=== PATIENT | female | born 1955 | race Two or more races ===

== ENCOUNTER 2022-05-10 22:46 | Inpatient (IN) | payer MEDICAID, OTHER ==
[~2022-05-10] VITALS: Ht 157.5 cm; Wt 54.4 kg
--- NOTE | 2022-05-10 23:15 | NUR ---
[id number] FROM HOME C/O WEAKNESS , NEAR SYNCOPAL EPISODE, COOL, CLAMMY, AND LETHARGIC WITH BG 42 ON SCENE. 1 AMP D10 GIVEN BUILDING SERVICEMAN. PT REMAINS LETHARGIC AND WEAK ON ASSESSMENT BG 184. HC DIABETES/ PLACED ON MONITOR AND PULSE OX AND V/S WNL. MD WAS AT BEDSIDE FOR ASSESSMENT.
--- NOTE | 2022-05-10 23:16 | NUR ---
20G IV LINE RAC. BLOOD DRAWN AND SENT TO LAB.
--- NOTE | 2022-05-10 23:18 | NUR ---
RUBEN COLLECTED AND SENT TO LAB
[2022-05-11] MEDS ORDERED: ASPIRIN 325 MG TABLET PO ONE
[2022-05-11 00:08] LABS: RED BLOOD CELL COUNT(AUTO) 4.24 MIL/uL (4.0-5.2)
[2022-05-11 00:09] LABS: BASOPHILS % (AUTO) 0.4 % (0.0-2.0); EOSINOPHILS % (AUTO) 9.8 % (0.0-6.0); HEMATOCRIT 37 % (33-45); LYMPHOCYTES # (AUTO) 1.1 K/uL (0.8-4.8); LYMPHOCYTES % (AUTO) 22.6 % (20.0-44.0); MEAN CORPUSCULAR HGB CONC 32 g/dl (31.0-36.0); MEAN CORPUSCULAR VOLUME 88 fL (82-100); MONOCYTES # (AUTO) 0.5 K/uL (0.1-1.30); MONOCYTES % (AUTO) 9.8 % (2.0-12.0); NEUTROPHILS # (AUTO) 2.9 K/uL (1.8-8.9); NEUTROPHILS % (AUTO) 57.4 % (43.0-81.0); PLATELET COUNT (AUTO) 94 K/uL (150-450)
[2022-05-11] MEDS ORDERED: ASPIRIN 325 MG TABLET ONE (00:10)
[2022-05-11 00:18] LABS: CALCIUM, SERUM 9.4 mg/dL (8.5-10.1); CARBON DIOXIDE 29 mmol/L (21-32); CHLORIDE 97 mmol/L (98-107); CREATININE 4.6 mg/dL (0.6-1.3); GLUCOSE 187 mg/dL (74-106); SODIUM SERUM 134 mmol/L (136-145); UREA NITROGEN, BLOOD 69 mg/dL (7-18)
[2022-05-11 00:34] LABS: ALANINE AMINOTRANSFERASE 17 U/L (12-78); ALBUMIN 3.9 g/dL (3.4-5.0); ALKALINE PHOSPHATASE 112 U/L (46-116); ASPARTATE AMINOTRANSFERASE 19 U/L (15-37); BILIRUBIN,DIRECT 0.1 mg/dL (0.0-0.2); BILIRUBIN,TOTAL 0.3 mg/dL (0.2-1.0); TOTAL PROTEIN, SERUM 7.9 g/dL (6.4-8.2)
[2022-05-11] MEDS ORDERED: ONDANSETRON HCL/PF 4 MG/2 ML VIAL IVP PRN (02:00)
[2022-05-11] MEDS ORDERED: NITROGLYCERIN 0.4 MG/TAB BOTTLE SL ONE (02:00)
[2022-05-11] MEDS ORDERED: ACETAMINOPHEN 325 MG TABLET PO PRN (02:00)
[2022-05-11] MEDS ORDERED: MORPHINE SULFATE INJ 2 MG/ML DISP.SYRIN IV PRN (02:00)
[2022-05-11] MEDS ORDERED: MAGNESIUM HYDROXIDE 30 ML UDC PO PRN (02:00)
[2022-05-11] MEDS ORDERED: DEXTROSE 50%-WATER 50 ML DISP.SYRIN IV PRN (02:00)
[2022-05-11] MEDS ORDERED: IV NS 0.9% 1,000 ML IV PRN (02:00)
[2022-05-11] MEDS ORDERED: ZOLPIDEM TARTRATE 5 MG TABLET PO PRN (02:00)
[2022-05-11] MEDS ORDERED: MAG HYDROX/AL HYDROX/SIMETH 30 ML UDC PO PRN (02:00)
[2022-05-11] MEDS ORDERED: Z GUARD REMEDY 4 OZ OINT TP PRN (02:00)
[2022-05-11 02:03] LABS: BASOPHILS % (MANUAL) 0 % (0.0-2.0); EOSINOPHILS % (MANUAL) 4 % (0-4); LYMPHOCYTES % (MANUAL) 24 % (16-48); MONOCYTES % (MANUAL) 10 % (0-11.0); NEUTROPHILS % (MANUAL) 62 (42-76)
[2022-05-11 02:08] LABS: CHOLESTEROL 176 mg/dL (<200); HDL CHOLESTEROL 86 mg/dL (40-60); LDL 60 mg/dL (0-99); TRIGLYCERIDES 142 mg/dL (30-150)
[2022-05-11 02:19] LABS: T4 (THYROXINE) 7.7 ug/dL (4.7-13.3); THYROID STIMULATING HORMONE 2.314 uIU/mL (0.358-3.74)
[2022-05-11] MEDS ORDERED: LABETALOL HCL IV 100MG VIAL ONE (03:23)
[2022-05-11] MEDS ORDERED: LABETALOL HCL IV 100MG VIAL IV ONE (03:30)
[2022-05-11] MEDS ORDERED: METOPROLOL TARTRATE INJ 5 MG/5 ML AMPUL IVP ONE (03:30)
--- NOTE | 2022-05-11 03:48 | NUR ---
CRITICAL: KASIA Santoro MD AWARE
[2022-05-11] MEDS ORDERED: NITROGLYCERIN 0.4 MG/TAB BOTTLE ONE (03:53)
[2022-05-11] MEDS: BLOOD SUGAR DIAGNOSTIC 1 EACH STRIP IN SCH ×5 (05:05→22:19)
[2022-05-11] MEDS ORDERED: INSULIN REGULAR, HUMAN 100 UNIT/ML 10 ML VIAL ONE (05:06)
[2022-05-11] MEDS: INSULIN REGULAR, HUMAN 100 UNIT/ML 3 ML VIAL SQ PRN ×4 (05:12→17:18)
--- NOTE | 2022-05-11 07:53 | NUR ---
BED 307-2
--- NOTE | 2022-05-11 08:12 | NUR ---
REPORT GIVEN TO NURSE MOSES FOR ADEOLA
[2022-05-11] MEDS ORDERED: HYDR-4076 PO (08:38)
[2022-05-11] MEDS ORDERED: SACU1TAB PO (08:38)
[2022-05-11] MEDS ORDERED: ATOR10TA PO (08:38)
[2022-05-11] MEDS ORDERED: ASPI-1169 PO (08:38)
[2022-05-11] MEDS ORDERED: CLOP75TA15 PO (08:38)
[2022-05-11] MEDS ORDERED: BUME2TAB7 PO (08:38)
[2022-05-11] MEDS ORDERED: SEVE800T8 PO (08:38)
[2022-05-11] MEDS ORDERED: FOLI0.8T23 PO (08:38)
[2022-05-11] MEDS ORDERED: DOCU-141 PO (08:38)
[2022-05-11] MEDS ORDERED: CHOL100043 PO (08:38)
[2022-05-11] MEDS ORDERED: CARV3.122 PO (08:38)
[2022-05-11] MEDS ORDERED: CALC667T2 PO (08:43)
--- NOTE | 2022-05-11 08:49 | NUR ---
TRANSFERRED TO BED 307 IN STABLE CONDITION
[2022-05-11] MEDS ORDERED: HEPARIN SODIUM, PORCINE 5000 UNITS/1 ML VIAL SQ SCH (09:00)
[2022-05-11] MEDS ORDERED: PANTOPRAZOLE 40 MG VIAL IV SCH (09:00)
--- NOTE | 2022-05-11 09:00 | NUR ---
ADMISSION RN NOTES ADMITTED A 67 Y/O FEMALE TO THE UNIT AT 0850 VIA GURNEY ACCOMPANIED BY Lis STAFF WITH DX OF NSTEMI. PATIENT IS ALERT AND ORIENTED X4, ABLE TO MAKE NEEDS KNOWN. PT IS MAORI SPEAKING. RATTLE LEAK AND SQUEAK REPAIRER IS AVAILABLE NEEDED. PT ORIENTED TO STAFF AND UNIT. V/S TAKEN AND RECORDED. PT ON ROOM AIR, TOLERATING WELL WITH SPO2 AT 96%. NO SOB NOTED AT THIS TIME. LUNGS CLEAR BILATERALLY ON AUSCULTATION. NOT IN ANY SIGN OF RESPIRATORY DISTRESS. PT PLACED ON CARDIAC TELE MONITOR WITH CURRENT READING OF NORMAL SINUS RHYTHM, HR 73. NO C/O OF CARDIAC DISTRESS VOICED AT THIS TIME. ABDOMEN SOFT, NON-TENDER, AND NON-DISTENDED. PT DENIES PAIN AT THIS TIME. PHOTOGRAPHS OF SKIN ISSUES TAKEN AND FILED IN THE CHART. IV ACCESS ON RAC G #20 INTACT AND PATENT. RIGHT UPPER CHEST PERMACATH INTACT WITH DRESSING IN PLACE. NO ACTIVE BLEEDING NOTED. SAFETY MEASURES INITIATED: BED IN LOWEST AND LOCKED POSITION, BED ALARM ON, SIDE RAILS UP X2, AND CALL LIGHT WITHIN REACH. WILL CONTINUE TO MONITOR PT.
--- NOTE | 2022-05-11 09:15 | NUR ---
RN NOTE RECEIVED AN ORDER FROM DR. COLON TO START PT ON HEPARIN DRIP FOR ACUTE CORONARY SYNDROME. PER PROTOCOL, PT'S WEIGHT IS 56 KG X 70UNITS = 3920 AND 15UNITS/KG/HR X 56KG = 840 UNITS/HR. CLARIFIED DOSAGE WITH CHARGE NURSE KAR AND PHARMACIST KUN, PER KUN TO ROUND THE 3920 UNITS TO 4000 UNITS BOLUS AND THE 840UNITS/HR TO 850 UNITS/HR (17ML/HR). AWAITING FOR THE BASELINE PTT TO BE DRAWN.
[2022-05-11] MEDS ORDERED: HEPARIN INFUSION/D5W 500 ML IV PRN ×2 (09:30→11:00)
[2022-05-11] MEDS: CLOPIDOGREL BISULFATE 75 MG TABLET PO SCH (09:59)
[2022-05-11] MEDS: hydrALAZINE HCL 25 MG TABLET PO SCH ×2 (10:00→17:00)
[2022-05-11] MEDS: ASPIRIN 81 MG TAB.CHEW PO SCH (10:00)
[2022-05-11] MEDS: BUMETANIDE (1 MG) 1 MG TABLET PO SCH (10:00)
[2022-05-11] MEDS: CARVEDILOL 3.125 MG TABLET PO SCH ×2 (10:00→17:00)
[2022-05-11] MEDS ORDERED: HEPARIN SODIUM, PORCINE 1000 UNIT/1 ML VIAL IV ONE (11:00)
[2022-05-11] MEDS ORDERED: HEPARIN SODIUM, PORCINE 5000 UNITS/1 ML VIAL IV ONE (11:00)
--- NOTE | 2022-05-11 12:00 | NUR ---
RN NOTE PT'S BASELINE PTT IS 27.2. HEPARIN 4000 UNITS BOLUS ADMINISTERED AND HEPARIN DRIP INFUSION STARTED AT 850 UNITS/HR (17ML/HR) AT 1155 PER PROTOCOL. NEXT PTT WILL BE IN 6HRS AT 1755. CHARGED NURSE, PHARMACIST, AND MD AWARE OF DOSAGE. Addendum: 05/11/22 at 1935 by DAX RUIZ RN ADDENDUM HEPARIN DOSAGE ADMINISTRATION WITNESSED BY SHIRLEY MÉNDEZ.
--- NOTE | 2022-05-11 18:00 | NUR ---
RN NOTE PT'S PTT IS 48.0. PER PROTOCOL, NO CHANGES TO THE HEPARIN DRIP INFUSION NEEDED. HEPARIN DRIP INFUSION CONTINUES AT 850 UNITS/HR (17ML/HR) FROM TIME 1800. NEXT PTT WILL BE IN 6HRS ON 05/12/22 AT 0000. CHARGED NURSE KAR, PHARMACIST, AND MD AWARE OF DOSAGE AND AGREED.
--- NOTE | 2022-05-11 19:30 | NUR ---
PLUG GROWER CLOSING NOTE PT IN BED ASLEEP, EASILY AROUSED. PATIENT IS ALERT AND ORIENTED X4, ABLE TO MAKE NEEDS KNOWN. PT IS UZBEK SPEAKING. PT ON ROOM AIR, TOLERATING WELL WITH SPO2 AT 96%. NO SOB NOTED AT THIS TIME. NOT IN ANY SIGN OF RESPIRATORY DISTRESS. PT ON CARDIAC TELE MONITOR WITH CURRENT READING OF NORMAL SINUS RHYTHM, HR 69. NO C/O OF CARDIAC DISTRESS VOICED AT THIS TIME. IV ACCESS ON RAC G #20 INTACT AND PATENT WITH HEPARIN DRIP INFUSING AT 17ML/HR WITH 850 UNITS/HR DOSAGE. RIGHT UPPER CHEST PERMACATH INTACT WITH DRESSING IN PLACE. NO ACTIVE BLEEDING NOTED. ALL NEEDS ATTENDED. KEPT CLEAN AND COMFORTABLE. SAFETY MEASURES IN PLACE: BED IN LOWEST AND LOCKED POSITION, BED ALARM ON, SIDE RAILS UP X2, AND CALL LIGHT WITHIN REACH. ENDORSED TO CRITICAL CARE SPECIALIST NURSE FOR ADEOLA.
[2022-05-11 20:00] VITALS: BP 115/58
[2022-05-11] MEDS: ATORVASTATIN 40 MG TABLET PO SCH (22:19)
[2022-05-11] MEDS: POLYETHYLENE GLYCOL 3350 17 GM POWD.PACK PO SCH (22:19)
[2022-05-11 23:57] VITALS: BP 121/63
[2022-05-12] MEDS: BLOOD SUGAR DIAGNOSTIC 1 EACH STRIP IN SCH ×6 (01:48→21:19)
[2022-05-12 03:51] VITALS: BP 128/64
[2022-05-12] MEDS: INSULIN REGULAR, HUMAN 100 UNIT/ML 3 ML VIAL SQ PRN ×3 (05:31→21:38)
[2022-05-12 06:41] LABS: BASOPHILS % (AUTO) 0.6 % (0.0-2.0); EOSINOPHILS % (AUTO) 11.3 % (0.0-6.0); HEMATOCRIT 33 % (33-45); HEMOGLOBIN 10.8 g/dL (11.5-14.8); LYMPHOCYTES % (AUTO) 44.9 % (20.0-44.0); MEAN CORPUSCULAR HGB CONC 33 g/dl (31.0-36.0); MEAN CORPUSCULAR VOLUME 87 fL (82-100); MONOCYTES # (AUTO) 0.5 K/uL (0.1-1.30); MONOCYTES % (AUTO) 10.1 % (2.0-12.0); NEUTROPHILS # (AUTO) 1.5 K/uL (1.8-8.9); NEUTROPHILS % (AUTO) 33.1 % (43.0-81.0); PLATELET COUNT (AUTO) 95 K/uL (150-450); RED BLOOD CELL COUNT(AUTO) 3.77 MIL/uL (4.0-5.2); WHITE BLOOD COUNT (AUTO) 4.5 K/uL (4.3-11.0)
[2022-05-12 07:05] LABS: ALBUMIN 3.3 g/dL (3.4-5.0); BILIRUBIN,TOTAL 0.3 mg/dL (0.2-1.0); CALCIUM, SERUM 8.4 mg/dL (8.5-10.1); CREATININE 6.1 mg/dL (0.6-1.3); MAGNESIUM 2.4 mg/dL (1.8-2.4); PHOSPHORUS 5.6 mg/dL (2.5-4.9); POTASSIUM 5.3 mmol/L (3.5-5.1); TOTAL PROTEIN, SERUM 6.6 g/dL (6.4-8.2)
--- NOTE | 2022-05-12 07:45 | NUR ---
PSYCHOLOGIST PRIVATE PRACTICE OPENING NOTES PATIENT AWAKE, EATING IN BED, ALERT/ORIENTED X 4, TAJIK SPEAKING ONLY, ABLE TO MAKE NEEDS KNOWN. PATIENT STABLE ON RA WITHOUT S/S OF DISTRESS OR SOB NOTED, CLEAR LUNGS. PATIENT ON EXTERNAL KNIFE MACHINE OPERATOR READING SINUS RHYTHM WITH BBB, HR: 72. PATIENT HAS BRP, ABLE TO WALK WITH WALKER, PATIENT HAS A BOOTS ON HER LEFT FOOT FOR SUPPORT. HEPARIN INFUSION WAS DC'D AT 0732. SAFETY MEASURES IN PLACE: CALL LIGHT AND TRAY TABLE WITHIN REACH, SIDE RAILS UP X 2, BED LOCKED IN LOWEST POSITION, BED ALARM ON. WILL CONTINUE TO MONITOR THE PATIENT AND WILL ASSIST WITH SCHEDULED CT ANGIO AND HEMODIALYSIS PROCEDURES.
--- NOTE | 2022-05-12 07:46 | NUR ---
PRIMARY SPECIAL EDUCATOR CLOSING NOTE PATIENT AWAKE IN BED, ALERT/ORIENTED X 4, MARTINIQUAIS SPEAKING ONLY, ABLE TO MAKE NEEDS KNOWN. NO C/O OF PAIN THROUGHOUT SHIFT. PATIENT STABLE ON RA, NO S/S OF DISTRESS OR SOB NOTED, BREATHING EVEN AND UNLABORED. PATIENT ON EXTERNAL ROLL UP GUIDER OPERATOR READING SINUS RHYTHM WITH BBB, HR: 72. MEDICATIONS GIVEN ORDERED, PT NEEDS MET THROUGHOUT SHIFT. CONSENT FOR CT ANGIO AND HEMODIALYSIS SIGNED. PATIENT STATES LEFT FOOT INJURY OCCURRED YEARS AGO, WALKS USING WALKER, AMBULATED TO BATHROOM WITH WALKER AND SBA. SAFETY MEASURES IN PLACE: CALL LIGHT WITHIN REACH, SIDE RAILS UP X 2, BED LOCKED IN LOWEST POSITION, BED ALARM ON, ENDORSED TO DAY SHIFT NURSE FOR CONTINUITY OF CARE Addendum: 05/12/22 at 0750 by MART BUCK RN IV ON RFA #22G INTACT AND INFUSING HEPARIN DRIP @ 850 UNITS/HOUR
[2022-05-12 08:00] VITALS: BP 90/54
--- NOTE | 2022-05-12 08:57 | NUR ---
WOUND CARE CONSULT: PT HAVING DIALYSIS AT THIS TIME. PT PRESENTS WITH DISCOLORATION TO ARMS AND SCARRING/DEFORMITY TO LEFT FOOT/ANKLE AREA, PRESENT ON ADMISSION. DISCUSSED SKIN PROTECTION WITH NURSING STAFF. MD IN AGREEMENT WITH PLAN OF CARE.
[2022-05-12] MEDS ORDERED: CARVEDILOL 3.125 MG TABLET PO SCH (09:00)
[2022-05-12] MEDS: CARVEDILOL 3.125 MG TABLET PO SCH ×2 (09:00→17:00)
[2022-05-12] MEDS ORDERED: hydrALAZINE HCL 25 MG TABLET PO SCH (09:00)
[2022-05-12] MEDS: hydrALAZINE HCL 25 MG TABLET PO SCH ×2 (09:00→17:00)
[2022-05-12] MEDS: BUMETANIDE (1 MG) 1 MG TABLET PO SCH (09:00)
[2022-05-12] MEDS: ENTRESTO PO SCH ×2 (09:00→17:54)
[2022-05-12] MEDS ORDERED: Medication Not On Formulary EA (Bumetanide 2 MG) PO SCH (09:00)
[2022-05-12] MEDS ORDERED: ATORVASTATIN 10 MG TABLET PO SCH (09:00)
[2022-05-12] MEDS ORDERED: CLOPIDOGREL BISULFATE 75 MG TABLET PO SCH (09:00)
[2022-05-12] MEDS: ASPIRIN 81 MG TAB.CHEW PO SCH (09:13)
[2022-05-12] MEDS: PANTOPRAZOLE 40 MG TABLET.DR PO SCH (09:13)
[2022-05-12] MEDS: DOCUSATE SODIUM 100 MG CAPSULE PO SCH ×2 (09:15→17:50)
[2022-05-12] MEDS: CLOPIDOGREL BISULFATE 75 MG TABLET PO SCH (09:15)
[2022-05-12] MEDS: HEPARIN SODIUM, PORCINE 5000 UNITS/1 ML VIAL SQ SCH ×2 (09:17→21:20)
[2022-05-12] MEDS: CHOLECALCIFEROL 1,000 UNIT TABLET (VIT D3) PO SCH (09:19)
[2022-05-12 12:00] VITALS: BP 98/60
[2022-05-12] MEDS ORDERED: NITROGLYCERIN 0.4 MG/TAB BOTTLE ONE (12:06)
[2022-05-12] MEDS ORDERED: IOHEXOL-350 100 ML VIAL IV ONE (12:06)
[2022-05-12] MEDS ORDERED: METOPROLOL TARTRATE INJ 5 MG/5 ML AMPUL ONE ×2 (12:07→13:05)
[2022-05-12] MEDS ORDERED: CT SWABBABLE VALVE TRANS SET 1 EA INFUS.SET MC ONE (12:07)
[2022-05-12] MEDS ORDERED: IV NS 0.9% 250 ML IV ONE (12:08)
[2022-05-12] MEDS: METOPROLOL TARTRATE INJ 5 MG/5 ML AMPUL IVP PRN ×5 (12:50→13:10)
[2022-05-12] MEDS ORDERED: NITROGLYCERIN 0.4 MG/TAB BOTTLE SL ONE (13:00)
[2022-05-12] MEDS: CALCIUM ACETATE 667 MG CAP/TAB PO SCH ×2 (13:48→17:50)
[2022-05-12] MEDS: SEVELAMER CARBONATE 800 MG TABLET PO SCH ×2 (13:48→17:56)
[2022-05-12 16:00] VITALS: BP 90/50
[2022-05-12] MEDS ORDERED: BISACODYL SUPP (10 MG) 10 MG/SUPP.RECT SUPP.RECT RC ONE (16:00)
--- NOTE | 2022-05-12 19:26 | NUR ---
AUTOMATION CONTROL INTEGRATOR CLOSING NOTES PATIENT AWAKE, ALERT/ORIENTED X 4, KOSOVAN SPEAKING ONLY, ABLE TO MAKE NEEDS KNOWN. PATIENT STABLE ON RA WITHOUT S/S OF DISTRESS OR SOB NOTED, CLEAR LUNGS. PATIENT ON EXTERNAL FEED HANDLER READING SINUS RHYTHM WITH BBB AT 69 BPM. PATIENT HAD HEMODIALYSIS AND CT ANGIOGRAM DURING MY SHIFT. 2L WAS OUT FROM HD. SAFETY MEASURES IN PLACE: CALL LIGHT AND TRAY TABLE WITHIN REACH, SIDE RAILS UP X 2, BED LOCKED IN LOWEST POSITION, BED ALARM ON. ALL NEEDS MET. ENDORSED TO THE NEXT NURSE.
--- NOTE | 2022-05-12 19:35 | NUR ---
INSURANCE SALES ASSOCIATE OPENING NOTE PATIENT AWAKE, ALERT/ORIENTED X 4, CHINESE SPEAKING ONLY, ABLE TO MAKE NEEDS KNOWN. PATIENT STABLE ON RA WITHOUT S/S OF DISTRESS OR SOB NOTED, BREATHING EVEN AND UNLABORED. PATIENT ON EXTERNAL MOLDING PROCESS TECHNICIAN READING SINUS RHYTHM WITH BBB, HR: 74 BPM. RAC #20G IV ACCESS INTACT AND SALINE LOCKED. SAFETY MEASURES IN PLACE: CALL LIGHT AND TRAY TABLE WITHIN REACH, SIDE RAILS UP X 2, BED LOCKED IN LOWEST POSITION, BED ALARM ON. WILL CONTINUE TO MONITOR PATIENT
[2022-05-12 20:00] VITALS: BP 133/71
[2022-05-12] MEDS: POLYETHYLENE GLYCOL 3350 17 GM POWD.PACK PO SCH (21:19)
[2022-05-12] MEDS: ATORVASTATIN 40 MG TABLET PO SCH (21:19)
[2022-05-13] VITALS: BP 126/64
[2022-05-13] MEDS: INSULIN REGULAR, HUMAN 100 UNIT/ML 3 ML VIAL SQ PRN ×4 (00:28→22:33)
[2022-05-13] MEDS: BLOOD SUGAR DIAGNOSTIC 1 EACH STRIP IN SCH ×6 (00:28→21:28)
[2022-05-13 04:00] VITALS: BP 138/67
[2022-05-13 05:53] LABS: BASOPHILS % (AUTO) 0.7 % (0.0-2.0); EOSINOPHILS % (AUTO) 11.5 % (0.0-6.0); HEMATOCRIT 31 % (33-45); LYMPHOCYTES # (AUTO) 1.2 K/uL (0.8-4.8); MEAN CORPUSCULAR HGB CONC 33 g/dl (31.0-36.0); MEAN CORPUSCULAR VOLUME 86 fL (82-100); MONOCYTES # (AUTO) 0.4 K/uL (0.1-1.30); MONOCYTES % (AUTO) 10.9 % (2.0-12.0); NEUTROPHILS # (AUTO) 1.7 K/uL (1.8-8.9); NEUTROPHILS % (AUTO) 43.9 % (43.0-81.0); PLATELET COUNT (AUTO) 89 K/uL (150-450); RED BLOOD CELL COUNT(AUTO) 3.54 MIL/uL (4.0-5.2); WHITE BLOOD COUNT (AUTO) 3.8 K/uL (4.3-11.0)
--- NOTE | 2022-05-13 06:58 | NUR ---
WET PAN MIXER CLOSING NOTE PATIENT SLEEPING IN BED, ALERT/ORIENTED X 4, HUNGARIAN SPEAKING ONLY, ABLE TO MAKE NEEDS KNOWN. PATIENT STABLE ON RA, NO S/S OF DISTRESS OR SOB NOTED, BREATHING EVEN AND UNLABORED. PATIENT ON EXTERNAL CUT IN STATION OPERATOR READING SINUS RHYTHM WITH BBB, HR: 75. MEDICATIONS GIVEN ORDERED, PT NEEDS MET THROUGHOUT SHIFT. PATIENT AMBULATORY TO BATHROOM WITH WALKER AND SBA. MEDICATIONS GIVEN ORDERED, PT NEEDS MET THROUGHOUT SHIFT. SAFETY MEASURES IN PLACE: CALL LIGHT WITHIN REACH, SIDE RAILS UP X 2, BED LOCKED IN LOWEST POSITION, BED ALARM ON. WILL ENDORSE TO DAY SHIFT NURSE FOR CONTINUITY OF CARE
[2022-05-13 07:00] LABS: CALCIUM, SERUM 8.6 mg/dL (8.5-10.1); CREATININE 4.2 mg/dL (0.6-1.3); MAGNESIUM 2.1 mg/dL (1.8-2.4); PHOSPHORUS 3.3 mg/dL (2.5-4.9)
--- NOTE | 2022-05-13 07:30 | NUR ---
RN Opening Note PT AOx4, states no complication and shows no signs of distress. Pt able to express her own needs and concerns. All safety precautions take, helped pt to bathroom. Call light and table within reach, bed at lowest position.
[2022-05-13 08:00] VITALS: BP 155/77
[2022-05-13] MEDS: CHOLECALCIFEROL 1,000 UNIT TABLET (VIT D3) PO SCH (08:40)
[2022-05-13] MEDS: CARVEDILOL 3.125 MG TABLET PO SCH ×2 (08:40→20:47)
[2022-05-13] MEDS: ASPIRIN 81 MG TAB.CHEW PO SCH (08:40)
[2022-05-13] MEDS: SEVELAMER CARBONATE 800 MG TABLET PO SCH ×3 (08:41→18:24)
[2022-05-13] MEDS: DOCUSATE SODIUM 100 MG CAPSULE PO SCH ×2 (08:41→16:17)
[2022-05-13] MEDS: hydrALAZINE HCL 25 MG TABLET PO SCH ×2 (08:41→16:17)
[2022-05-13] MEDS: VIT B CMPLX 3/FA/VIT C/BIOTIN 1 TAB TABLET PO SCH (08:41)
[2022-05-13] MEDS: PANTOPRAZOLE 40 MG TABLET.DR PO SCH (08:42)
[2022-05-13] MEDS: CLOPIDOGREL BISULFATE 75 MG TABLET PO SCH (08:42)
[2022-05-13] MEDS: CALCIUM ACETATE 667 MG CAP/TAB PO SCH ×3 (08:42→18:24)
[2022-05-13] MEDS: HEPARIN SODIUM, PORCINE 5000 UNITS/1 ML VIAL SQ SCH ×2 (08:43→21:19)
[2022-05-13] MEDS: ENTRESTO PO SCH ×2 (08:44→16:22)
[2022-05-13] MEDS ORDERED: CARVEDILOL 6.25 MG TABLET PO SCH (09:00)
[2022-05-13] MEDS ORDERED: CARVEDILOL 3.125 MG TABLET PO SCH (10:00)
[2022-05-13 12:00] VITALS: BP 148/77
[2022-05-13 16:00] VITALS: BP 141/68
--- NOTE | 2022-05-13 19:00 | NUR ---
PHARMACY RESOURCE TECH NOTES PT IN BED, RESTING, DENIES PAIN OR ANY DISCOMFORT, RESPIRATIONS NORMAL AND NON LABORED, ABLE TO WALK TO THE BATHROOM USING A WALKER WITH STEADY GAIT, BLOOD SUGAR CHECKS DONE, NO S/S OF HYPO/HYPERGLYCEMIA NOTED, PM MEDS GIVEN ORDERED, ALL NEEDS ATTEBDED.
--- NOTE | 2022-05-13 19:15 | NUR ---
HOTEL ASSISTANT MANAGER OPENING NOTE RECEIVED PATIENT RESTING IN BED; AWAKE, ALERT AND ORIENTED X4. IRISH SPEAKING. BREATHING EVENLY AND UNLABORED. ON ROOM AIR; TOLERATING WELL. NOT IN ANY FORM OF RESPIRATORY DISTRESS. DENIES ANY PAIN OR DISCOMFORT OF THIS TIME. ON TELEMETRY MONITORING WITH READING OF SINUS RHYTHM WITH BBB HR-72 BPM. WITH RIGHT ANTECUBITAL G#20 IV ACCESS; PATENT, INTACT AND SALINE LOCKED. ABLE TO MAKE NEEDS KNOWN. SAFETY MEASURES IMPLEMENTED: CALL LIGHT AND TABLE WITHIN REACH, SIDE RAILS UP X2, BED IN LOWEST LOCKED POSITION. WILL CONTINUE TO MONITOR
[2022-05-13 20:00] VITALS: BP 154/80
--- NOTE | 2022-05-13 21:28 | NUR ---
RN NOTE BLOOD SUGAR CHECKED - 188 MG/DL; 3 UNITS OF REGULAR INSULIN GIVEN SQ PER SLIDING SCALE. WILL CONTINUE TO MONITOR
[2022-05-13] MEDS: ATORVASTATIN 40 MG TABLET PO SCH (21:33)
[2022-05-13] MEDS: POLYETHYLENE GLYCOL 3350 17 GM POWD.PACK PO SCH (21:34)
[2022-05-14] VITALS: BP 115/58
[2022-05-14] MEDS: BLOOD SUGAR DIAGNOSTIC 1 EACH STRIP IN SCH ×6 (01:12→21:17)
[2022-05-14] MEDS: INSULIN REGULAR, HUMAN 100 UNIT/ML 3 ML VIAL SQ PRN ×5 (01:18→17:49)
[2022-05-14 04:00] VITALS: BP 142/61
[2022-05-14 06:19] LABS: CREATININE 5.5 mg/dL (0.6-1.3); MAGNESIUM 2.3 mg/dL (1.8-2.4); PHOSPHORUS 3.4 mg/dL (2.5-4.9); POTASSIUM 5.5 mmol/L (3.5-5.1)
[2022-05-14 06:32] LABS: BASOPHILS % (AUTO) 0.8 % (0.0-2.0); HEMATOCRIT 30 % (33-45); HEMOGLOBIN 9.8 g/dL (11.5-14.8); LYMPHOCYTES # (AUTO) 1.3 K/uL (0.8-4.8); LYMPHOCYTES % (AUTO) 36.6 % (20.0-44.0); MEAN CORPUSCULAR HGB CONC 33 g/dl (31.0-36.0); MEAN CORPUSCULAR VOLUME 87 fL (82-100); MONOCYTES # (AUTO) 0.4 K/uL (0.1-1.30); MONOCYTES % (AUTO) 12.7 % (2.0-12.0); NEUTROPHILS # (AUTO) 1.3 K/uL (1.8-8.9); NEUTROPHILS % (AUTO) 37.9 % (43.0-81.0); PLATELET COUNT (AUTO) 85 K/uL (150-450); RED BLOOD CELL COUNT(AUTO) 3.44 MIL/uL (4.0-5.2); WHITE BLOOD COUNT (AUTO) 3.5 K/uL (4.3-11.0)
--- NOTE | 2022-05-14 06:57 | NUR ---
POWER MACHINE OPERATOR CLOSING NOTE PATIENT IN BED; AWAKE, A/O X4. ZAMBIAN SPEAKING. STABLE ON ROOM AIR; TOLERATING WELL. BREATHING EVEN AND NONLABORED. IN NO ACUTE DISTRESS NOTED. NO COMPLAINTS OF PAIN OR DISCOMFORT OF THIS TIME. ON TELEMETRY MONITORING WITH READING OF SINUS RHYTHM WITH BBB HR-70 BPM. WITH RAC G#20 IV ACCESS; PATENT, INTACT AND SALINE LOCKED. ALL DUE MEDS GIVEN ORDERED. SAFETY MEASURES MAINTAINED: CALL LIGHT AND TABLE WITHIN REACH, SIDE RAILS UP X2, BED IN LOWEST LOCKED POSITION. ENDORSED TO MORNING SHIFT FOR ADEOLA.
--- NOTE | 2022-05-14 07:30 | NUR ---
RN Opening Notes Received report form Night RN. PT AOx4, no signs of distress, able to express her own concerns. States "feeling better than yesterday". VSS, will continue to monitor and assist throughout shift. All safety precautions taken, call light and table within reach, bed at lowest position, pt aware of pending dialysis for today.
[2022-05-14 08:00] VITALS: BP 146/79
[2022-05-14] MEDS: CHOLECALCIFEROL 1,000 UNIT TABLET (VIT D3) PO SCH (08:12)
[2022-05-14] MEDS: SEVELAMER CARBONATE 800 MG TABLET PO SCH ×3 (08:12→17:44)
[2022-05-14] MEDS: VIT B CMPLX 3/FA/VIT C/BIOTIN 1 TAB TABLET PO SCH (08:12)
[2022-05-14] MEDS: CALCIUM ACETATE 667 MG CAP/TAB PO SCH ×3 (08:12→17:45)
[2022-05-14] MEDS: ASPIRIN 81 MG TAB.CHEW PO SCH (08:12)
[2022-05-14] MEDS: DOCUSATE SODIUM 100 MG CAPSULE PO SCH ×2 (08:12→17:45)
[2022-05-14] MEDS: PANTOPRAZOLE 40 MG TABLET.DR PO SCH (08:12)
[2022-05-14] MEDS: CLOPIDOGREL BISULFATE 75 MG TABLET PO SCH (08:13)
[2022-05-14] MEDS: hydrALAZINE HCL 25 MG TABLET PO SCH ×2 (08:21→17:46)
[2022-05-14] MEDS: CARVEDILOL 3.125 MG TABLET PO SCH ×2 (08:21→21:22)
[2022-05-14] MEDS: HEPARIN SODIUM, PORCINE 5000 UNITS/1 ML VIAL SQ SCH ×2 (08:23→21:20)
[2022-05-14] MEDS: ENTRESTO PO SCH ×2 (09:57→18:23)
[2022-05-14 12:00] VITALS: BP 138/77
[2022-05-14 16:00] VITALS: BP 152/74
--- NOTE | 2022-05-14 18:47 | NUR ---
RN Closing Notes. PT AOx4, VSS, no incidents throughout shift, pt able to express her concerns. Monitored pt throughout shift and provided medications as prescribed. Patient was tired after dialysis but vitals were stable. All safety precautions taken, call light and table within reach, bed at lowest position.
--- NOTE | 2022-05-14 19:30 | NUR ---
RECEIVED IN BED SHE IS WATCHING TV REMOTE IN HAND ALERT [facility] SPEAKING WITH SOME ENGLIS UNDERSTANDING NURSE IN ROOM WITH HER [employer] LIFE VEST EXPLAINING TO THE PATIENT THE USE NOTED WALKER BY THE PATIENTS BED
[2022-05-14 20:00] VITALS: BP 145/75
[2022-05-14] MEDS: POLYETHYLENE GLYCOL 3350 17 GM POWD.PACK PO SCH (21:20)
[2022-05-14] MEDS: ATORVASTATIN 40 MG TABLET PO SCH (21:22)
[2022-05-15] VITALS: BP 134/69
[2022-05-15] MEDS: BLOOD SUGAR DIAGNOSTIC 1 EACH STRIP IN SCH ×4 (00:26→13:36)
[2022-05-15 04:00] VITALS: BP_SYST 120; BP_SYST 144; BP_DIAS 58; BP_DIAS 86
--- NOTE | 2022-05-15 05:05 | NUR ---
CLOSING : ALERT AND ORIENTATED X4 1900 NURSE FROM [facility] HERE WITH THE LIFE VEST AND NOTED PATIENT WITH THE VEST IN PLACE ON TELE SR72 GETS OOB TO THE [facility] USING THE WALKER AND DOES THIS INDEPENDENTLY NO SOB NO CP THRU THE NIGHT
--- NOTE | 2022-05-15 07:15 | NUR ---
ms rn received on bed, awake,alert,oriented x4,not in any form of distress, respirations even and unlabored,no sob noted, lungs are diminished, abdomen soft, positive bowel sounds,denies pain at this time,all needs attended.
--- NOTE | 2022-05-15 08:00 | NUR ---
ms hernandez was seen by carmencita farias w/ orders made and carried out. Addendum: 05/15/22 at 1740 by PAUL REED RN was seen by iqra at this time w/ order to go home today
[2022-05-15 08:25] VITALS: BP 120/51
--- NOTE | 2022-05-15 09:00 | NUR ---
rn bs = 156- patient refused to cover because of history hypoglycemia.
[2022-05-15] MEDS: ASPIRIN 81 MG TAB.CHEW PO SCH (09:15)
[2022-05-15] MEDS: CHOLECALCIFEROL 1,000 UNIT TABLET (VIT D3) PO SCH (09:15)
[2022-05-15] MEDS: VIT B CMPLX 3/FA/VIT C/BIOTIN 1 TAB TABLET PO SCH (09:15)
[2022-05-15] MEDS: DOCUSATE SODIUM 100 MG CAPSULE PO SCH (09:15)
[2022-05-15] MEDS: CLOPIDOGREL BISULFATE 75 MG TABLET PO SCH (09:16)
[2022-05-15] MEDS: SEVELAMER CARBONATE 800 MG TABLET PO SCH ×2 (09:16→13:35)
[2022-05-15] MEDS: CALCIUM ACETATE 667 MG CAP/TAB PO SCH ×2 (09:16→13:35)
[2022-05-15] MEDS: PANTOPRAZOLE 40 MG TABLET.DR PO SCH (09:16)
[2022-05-15] MEDS: hydrALAZINE HCL 25 MG TABLET PO SCH (09:17)
[2022-05-15] MEDS: CARVEDILOL 3.125 MG TABLET PO SCH (09:17)
[2022-05-15] MEDS: ENTRESTO PO SCH (09:18)
[2022-05-15] MEDS: HEPARIN SODIUM, PORCINE 5000 UNITS/1 ML VIAL SQ SCH (09:19)
--- NOTE | 2022-05-15 09:45 | NUR ---
ms hernandez breakfast served, refusing to eat, due meds given,tolerated well.
[2022-05-15 11:29] VITALS: BP 137/68
--- NOTE | 2022-05-15 13:30 | NUR ---
ms rn bs - 191 - patient again refused coverage w/ dear that she will have hypoclycemia again, will monitor patient.
[2022-05-15 16:09] VITALS: BP 136/70
--- NOTE | 2022-05-15 16:40 | NUR ---
ms varnish melter helper istructions given and understood, patient refused to take pictures on her body bruises, all needs attended.
== END 2022-05-15 16:30 | disposition home or self-care (01) | DRG 280 ==
LOC: EDBD 22:52 → ER 22:52 → TRANSITION 05-11 03:23 → EDBD 05-11 03:23 → TELE 05-11 09:03
PROVIDERS: ADMIT Nurse Practitioner Family; ATTEND Nurse Practitioner Acute Care
PROC: 5A1D70Z Performance of Urinary Filtration, Intermittent, Less than 6 Hours Per Day (ICD-10-PCS; principal; 2022-05-12)
DX: I21.4 Non-ST elevation (NSTEMI) myocardial infarction (principal); I50.43 Acute on chronic combined systolic (congestive) and diastolic (congestive) heart failure; N18.6 End stage renal disease; E87.1 Hypo-osmolality and hyponatremia; I13.2 Hypertensive heart and chronic kidney disease with heart failure and with stage 5 chronic kidney disease, or end stage renal disease; I42.9 Cardiomyopathy, unspecified; E11.22 Type 2 diabetes mellitus with diabetic chronic kidney disease; Z20.822 Contact with and (suspected) exposure to COVID-19; E11.649 Type 2 diabetes mellitus with hypoglycemia without coma; Z99.2 Dependence on renal dialysis; Z95.5 Presence of coronary angioplasty implant and graft; Z95.1 Presence of aortocoronary bypass graft; M89.8X9 Other specified disorders of bone, unspecified site; G93.89 Other specified disorders of brain; I27.20 Pulmonary hypertension, unspecified
CPT/HCPCS: 36415; 71045-TC; 73610-TC; 75574; 76770-TC; 80048-TC; 80053-TC; 80061-TC; 80076-TC; 82962-TC; 83605-TC; 83735-TC; 83880; 84100-TC; 84436-TC; 84443-TC; 84484-TC; 85025-TC; 85610-TC; 85730-TC; 86706; 87081-TC; 87340; 90935-TC; 93307-TC; 97116-TC; 97530-TC; C9113; C9803; G0378; J1644; J1815; J2270; J2405; J3490; J7030; J7050; Q9967